=== PATIENT | female | born 1955 | race Two or more races ===

== ENCOUNTER 2021-11-11 15:57 | Emergency (ER) | payer MEDICARE, OTHER ==
[~2021-11-11] VITALS: Ht 160 cm; Wt 78.9 kg
[2021-11-11] MEDS ORDERED: FUROSEMIDE 20 MG TAB PO ONE (19:15)
[2021-11-11 20:00] LABS: Basophils # (auto) 0.1 10 ^3/uL (0-0.2); Basophils % (auto) 0.5 % (0.0-2.0); Eosinophils # (auto) 0.2 10 ^3/uL (0-0.8); Eosinophils % (auto) 1.6 % (0.0-7.0); Hematocrit 37.8 % (36.0-46.0); Hemoglobin 12.4 g/dL (12.2-16.2); Lymphocytes # (auto) 3.7 10 ^3/uL (0.4-5.4); Lymphocytes % (auto) 36.2 % (10.0-50.0); Mean Corpuscular Hemoglobin 28.1 pg (28.0-32.0); Mean Corpuscular Hgb Conc. 32.8 g/dL (32.0-36.0); Mean Corpuscular Volume 85.7 fL (80.0-100.0); Monocytes # (auto) 0.6 10 ^3/uL (0-1.3); Neutrophils # (auto) 5.7 10 ^3/uL (1.6-8.6); Neutrophils % (auto) 55.7 % (37.0-80.0); Nucleated Red Blood Cells % 0.1 %; Red Blood Cells 4.41 10^6/uL (4.0-5.20); Red Cell Distribution Width 14.9 % (11.8-14.3); White Blood Cell 10.3 10^3/uL (4.4-10.8)
[2021-11-11 20:23] LABS: Calcium 8.5 mg/dL (8.5-10.1); Potassium 3.2 mmol/L (3.5-5.1)
[2021-11-11 21:10] LABS: BUN/Creatinine Ratio 11.1; Bilirubin, Total 0.6 mg/dL (0.2-1.0); Total Protein 5.8 g/dL (6.4-8.2)
[2021-11-11 21:11] LABS: Albumin 3.2 g/dL (3.4-5.0)
[2021-11-11] MEDS ORDERED: POTASSIUM CHL 20 Meq TABLET PO ONE (22:00)
[2021-11-11 22:12] LABS: CRP High Sensitivity 3.22 mg/dL (< 0.3)
[2021-11-11 22:19] VITALS: BP 121/82
== END 2021-11-11 23:12 | disposition home or self-care (01) ==
LOC: ER 15:57
DX: R60.0 Localized edema (principal); E11.9 Type 2 diabetes mellitus without complications
CPT/HCPCS: 36415; 80053; 83880; 85025; 86141; 93971

== ENCOUNTER 2021-11-17 09:10 | Emergency (ER) | payer MEDICARE ==
[~2021-11-17] VITALS: Ht 160 cm; Wt 79.3 kg
[2021-11-17 09:54] VITALS: BP 135/72
[2021-11-17] MEDS ORDERED: TRAM-297 PO (10:59)
[2021-11-17] MEDS ORDERED: HYDROcodone-ACET 5/325MG TAB PO ONE (11:00)
== END 2021-11-17 11:14 | disposition home or self-care (01) ==
LOC: ER 09:10
DX: M48.061 Spinal stenosis, lumbar region without neurogenic claudication (principal); E11.9 Type 2 diabetes mellitus without complications; Z90.49 Acquired absence of other specified parts of digestive tract; Z90.710 Acquired absence of both cervix and uterus
CPT/HCPCS: 72131

== ENCOUNTER 2021-11-23 14:16 | Emergency (ER) | payer MEDICARE ==
[~2021-11-23] VITALS: Ht 160 cm; Wt 76.4 kg
[~2021-11-23 14:16] MED LIST: TRAM-297 PO
[2021-11-23 15:34] LABS: Basophils # (auto) 0.2 10 ^3/uL (0-0.2); Basophils % (auto) 1.4 % (0.0-2.0); Eosinophils # (auto) 0.1 10 ^3/uL (0-0.8); Eosinophils % (auto) 0.9 % (0.0-7.0); Hematocrit 40.8 % (36.0-46.0); Hemoglobin 13.8 g/dL (12.2-16.2); Lymphocytes # (auto) 4.1 10 ^3/uL (0.4-5.4); Lymphocytes % (auto) 37.6 % (10.0-50.0); Mean Corpuscular Hemoglobin 28.4 pg (28.0-32.0); Mean Corpuscular Hgb Conc. 33.7 g/dL (32.0-36.0); Mean Corpuscular Volume 84.1 fL (80.0-100.0); Monocytes # (auto) 0.6 10 ^3/uL (0-1.3); Neutrophils # (auto) 5.9 10 ^3/uL (1.6-8.6); Neutrophils % (auto) 54.1 % (37.0-80.0); Nucleated Red Blood Cells % 0.1 %; Red Blood Cells 4.85 10^6/uL (4.0-5.20); Red Cell Distribution Width 14.9 % (11.8-14.3); White Blood Cell 10.9 10^3/uL (4.4-10.8)
[2021-11-23] MEDS ORDERED: PANT40TA2 PO (15:38)
[2021-11-23 16:04] LABS: Albumin 3.1 g/dL (3.4-5.0); BUN/Creatinine Ratio 8.3; Calcium 8.6 mg/dL (8.5-10.1); Potassium 3.3 mmol/L (3.5-5.1)
[2021-11-23 16:07] LABS: Bilirubin, Total 0.6 mg/dL (0.2-1.0); Total Protein 6.3 g/dL (6.4-8.2)
[2021-11-23] MEDS ORDERED: POTASSIUM EFFERVESENT TAB 25 MEQ PO ONE (16:45)
[2021-11-23] MEDS ORDERED: DONNATAL 5ml ORAL Elix (BELLADONNA ALK-PHENOBARB) PO ONE (17:15)
[2021-11-23] MEDS ORDERED: ALUM & MAG HYDROX-SIMETH LIQ(MAALOX) 30 ML PO ONE (17:15)
[2021-11-23] MEDS ORDERED: LIDOCAINE VISCOUS 2% 15ML UD PO ONE (17:15)
[2021-11-23] MEDS ORDERED: ALUM & MAG HYDROX-SIMETH LIQ(MAALOX) 30 ML ONE (17:47)
[2021-11-23 18:00] VITALS: BP 138/79
== END 2021-11-23 18:16 | disposition home or self-care (01) ==
LOC: ER 14:16
DX: K29.70 Gastritis, unspecified, without bleeding (principal)
CPT/HCPCS: 36415; 71045; 74176; 80053; 83690; 84484; 85025; 93005